=== PATIENT | male | born 1980 | race Two or more races ===

== ENCOUNTER 2020-08-11 13:20 | Emergency (ER) | payer OTHER ==
[~2020-08-11] VITALS: Ht 182.9 cm; Wt 86.2 kg
[2020-08-11 13:32] VITALS: BP 130/82
== END 2020-08-11 16:06 | disposition home or self-care (01) ==
LOC: ER 13:20
DX: H93.12 Tinnitus, left ear (principal)
CPT/HCPCS: 70480